=== PATIENT | female | born 1965 | race African-American/Black ===

== ENCOUNTER 2018-07-12 18:08 | Emergency (ER) | payer MEDICAID ==
[2018-07-12] MEDS ORDERED: LIDOCAINE 1% INJ-PF (10 MG/ML) 30 ML SDV INJ ONE (19:02)
--- NOTE | 2018-07-12 19:05 | ER Document Report ---
HPI - HPI Patient complains to provider of: Finger laceration Time Seen by Provider: 07/12/18 18:49 Onset: Just prior to arrival Onset/Duration: Sudden Quality of pain: Burning Pain Level: 5 Context: Patient states she was attempting to open a box with a knife and accidentally slipped cutting her left fifth finger. Patient states that her tetanus immunization is currently up-to-date. Patient is requesting sutures to be placed. Associated Symptoms: Other - Left fifth finger pain Exacerbated by: Movement Relieved by: Denies Similar symptoms previously: Yes Recently seen / treated by doctor: No - ROS ROS below otherwise negative: Yes Systems Reviewed and Negative: Yes All other systems reviewed and negative - MUSCULOSKELETAL Musculoskeletal: REPORTS: Extremity pain - DERM Skin Problems: Laceration Past Medical History - General Information source: Patient - Social History Smoking Status: Never Smoker Frequency of alcohol use: None Drug Abuse: None Family History: Reviewed & Not Pertinent Pulmonary Medical History: Reports: Hx Asthma Past Surgical History: Reports: Hx Orthopedic Surgery Vertical Provider Document - CONSTITUTIONAL Agree With Documented VS: Yes Exam Limitations: No Limitations General Appearance: WD/WN, No Apparent Distress - INFECTION CONTROL TRAVEL OUTSIDE OF THE [place] IN LAST 30 DAYS: No - HEENT HEENT: Atraumatic, Normocephalic - NECK Neck: Normal Inspection - RESPIRATORY Respiratory: No Respiratory Distress - CARDIOVASCULAR Pulses: Normal: Radial - MUSCULOSKELETAL/EXTREMETIES Musculoskeletal/Extremeties: MAEW, FROM, Tender - L 5th finger - NEURO Level of Consciousness: Awake, Alert, Appropriate Motor/Sensory: No Motor Deficit, No Sensory Deficit - DERM Integumentary: Warm, Dry, Laceration - Superficial 1 cm laceration to left fifth finger Course - Re-evaluation Re-evalutation: 07/12/18 19:03 Patient is not comfortable with Dermabond or Steri-Strips closure and is requesting sutures to be placed - Vital Signs Vital signs: Temp Pulse Resp BP Pulse Ox 98.4 F 74 16 148/89 H 100 07/12/18 18:14 07/12/18 18:14 07/12/18 18:14 07/12/18 18:14 07/12/18 18:14 Procedures - Immobilization Left Finger 5th digit Pre-Proc Neuro Vasc Exam: Normal Immobilizer type: Finger splint (Static) Performed by: PCT Post-Proc Neuro Vasc Exam: Normal Alignment checked and good: Yes - Laceration/Wound Repair Left Finger 5th digit Wound length (cm): 1 Wound's Depth, Shape: Linear Laceration pre-procedure: Shur-Clens applied Anesthetic type: 1% Lidocaine Wound explored: Clean Suture Size/Type: 6:0, Nylon Number of Sutures: 2 Post-procedure wound care: Sterile dressing applied, Splint applied Post-procedure NV exam normal: Yes Complications: No Hands back picture: 1 - 1 cm lac Discharge - Discharge Clinical Impression: Finger laceration Qualifiers: Encounter type: initial encounter Finger: little finger Damage to nail status: without damage Foreign body presence: without foreign body Laterality: left Qualified Code(s): S61.217A - Laceration without foreign body of left little finger without damage to nail, initial encounter Condition: Stable Disposition: HOME, SELF-CARE Instructions: Laceration Care ([facility]) Additional Instructions: Return immediately for any new or worsening symptoms Followup with your primary care provider, call tomorrow to make a followup appointment Suture removal in 8 days Prescriptions: Naproxen [Naprosyn 250 Nmg Tablet] 1 tab PO BID #14 tablet Referrals: ROSEANNA RANDALL DO [ACTIVE STAFF] - Follow up as needed
[2018-07-12] MEDS ORDERED: ACETAMINOPHEN 325 MG TABLET PO ONE (20:20)
[2018-07-12 20:47] VITALS: BP 160/91
== END 2018-07-12 20:48 | disposition home or self-care (01) ==
LOC: ER 18:08
DX: S61.217A Laceration without foreign body of left little finger without damage to nail, initial encounter (principal); W26.0XXA Contact with knife, initial encounter; Y93.89 Activity, other specified; J45.909 Unspecified asthma, uncomplicated
CPT/HCPCS: 99283; 12001; J3490